=== PATIENT | female | born 2000 | race Two or more races ===

== ENCOUNTER 2024-04-18 10:47 | Outpatient (CLI) | payer MEDICAID, SELFPAY ==
--- NOTE | 2024-04-18 10:51 | XR_ITS ---
Examination: Complete OB ultrasound greater than 14 weeks Date and time of exam: April 18, 2024 1053 hours INDICATIONS: Diagnosis intrauterine growth retardation Findings: Viable intrauterine single fetus with single amniotic sac presentation cephalic spine maternal left Cardiac motion 148 BPM Placenta anterior maternal right grade 3 Umbilical cord insertion 3 vessel seen Amniotic fluid index 9.6 cm Cervix 4.0 cm Ovaries obscured by bowel gas. Composite estimated gestational age based on BPD, head circumference, abdominal circumference, femur length is 30 weeks 3 days Estimated weight 3519 g. Survey of intracranial anatomy, spinal anatomy, abdominal anatomy, four-chamber heart performed with no abnormalities identified. Impression: Viable intrauterine gestation cephalic presentation Estimated gestational age 38 weeks 3 days Estimated weight 3519 g.
[2024-04-18 11:35] VITALS: BMI 41.1
[2024-04-18 11:46] VITALS: BP 126/63; PULSE 103
[2024-04-18 11:53] VITALS: BP 126/63; PULSE 103; RESP 20; TEMP 36.9; BMI 41.1
== END 2024-04-18 13:34 | disposition home or self-care (01) ==
LOC: S4S1 10:48 → S4SX 10:48
PROVIDERS: Referring Provider Obstetrics & Gynecology; Visit Provider Obstetrics & Gynecology
DX: O36.5930 Maternal care for other known or suspected poor fetal growth, third trimester, not applicable or unspecified (principal); Z3A.30 30 weeks gestation of pregnancy
CPT/HCPCS: 59025; 76805

== ENCOUNTER 2024-05-03 19:37 | Outpatient (CLI) | payer MEDICAID, SELFPAY ==
[2024-05-03 20:00] VITALS: BMI 40.6
[2024-05-03 20:45] VITALS: BP 126/62; PULSE 94; RESP 18; RESP 93; TEMP 37
[2024-05-03 20:46] VITALS: BP 134/66; PULSE 76; PULSE 82; PULSE 85; RESP 18; TEMP 37; O2SAT 91; O2SAT 95
[2024-05-03 20:51] VITALS: PULSE 86; O2SAT 96
[2024-05-03 20:56] VITALS: PULSE 80; O2SAT 97
[2024-05-03 21:01] VITALS: PULSE 84; O2SAT 96
[2024-05-03 21:06] VITALS: PULSE 102; O2SAT 97
--- NOTE | 2024-05-03 21:46 | PC.NURSE ---
Patient discharged home with significant other. vitals and nst wnl. Patient given discharge education and precautions, including reasons to return. Patient instructed to follow up with hospital and labor specialist for NST tomorrow. Patient verbalizes understanding, all questions answered and encouraged.
== END 2024-05-03 21:43 | disposition home or self-care (01) ==
LOC: S4S1 19:38 → S4SX 21:28
PROVIDERS: Referring Provider Advanced Practice Midwife; Visit Provider Advanced Practice Midwife
DX: Z36.9 Encounter for antenatal screening, unspecified (principal); Z34.03 Encounter for supervision of normal first pregnancy, third trimester; Z3A.40 40 weeks gestation of pregnancy
CPT/HCPCS: 59025

== ENCOUNTER 2024-05-06 20:15 | Outpatient (CLI) | payer MEDICAID, SELFPAY ==
[2024-05-06 20:51] VITALS: BMI 39.5
[2024-05-06 20:52] VITALS: BP 110/59; PULSE 100
--- NOTE | 2024-05-06 20:57 | XR_ITS ---
Examination: Complete OB ultrasound greater than 14 weeks Date and time of exam: May 06, 2024 at 2117 hrs. Indications: Post dates, diagnosis intrauterine growth retardation Findings: Viable intrauterine single fetus with single amniotic sac presentation cephalic Cardiac motion 1:30 BPM Placenta fundal maternal right grade 3 Umbilical cord insertion 3 vessel seen Amniotic fluid 0.6 cm Cervix 3.6 cm Ovaries obscured by bowel gas. Composite estimated gestational age based on BPD, head circumference, abdominal circumference, femur length is 39 weeks 0 days Estimated weight 3622 g. Survey of intracranial anatomy, spinal anatomy, abdominal anatomy, four-chamber heart performed with no abnormalities identified. Impression: Viable intrauterine gestation cephalic presentation.
== END 2024-05-06 22:30 | disposition home or self-care (01) ==
LOC: S4S1 20:37 → CNST 20:43 → S4SX 22:08
PROVIDERS: Referring Provider Obstetrics & Gynecology; Visit Provider Obstetrics & Gynecology
DX: Z34.03 Encounter for supervision of normal first pregnancy, third trimester (principal); Z36.9 Encounter for antenatal screening, unspecified; Z3A.39 39 weeks gestation of pregnancy
CPT/HCPCS: 59025; 59899; 76805

== ENCOUNTER 2024-05-08 01:08 | Inpatient (IN) | payer MEDICAID, SELFPAY ==
[2024-05-08] VITALS (132 sets, daily range): BP systolic 100–156; BP diastolic 50–97; PULSE 71–228; RESP 18–98; TEMP 36.8–37.3; O2SAT 69–100
[2024-05-08] MEDS: RINGERS LACTATED 1000 ML 1,000 ML 125 ML IV ×5 (03:02→09:41)
[2024-05-08 03:32] LABS: Basophils % (Auto) 0 % (0-2.5); Eosinophils # (Auto) 0.1 Thou/mm3 (0.0-0.5); Eosinophils % (Auto) 1 % (0-10); Hematocrit 36.8 % (36.0-46.0); Immature Granulocytes % (Auto) 0 % (0-0); Immature Granulocytes Auto 0.04 Thou/mm3 (0.00-0.00); Lymphocytes # (Auto) 1.6 Thou/mm3 (1.0-4.8); Lymphocytes % (Auto) 15 % (10-50); Mean Corpuscular HGB Conc 35.3 g/dl (31.0-37.0); Mean Corpuscular Hemoglobin 29.8 pg (25.0-35.0); Mean Corpuscular Volume 84 fL (80-100); Monocytes # (Auto) 0.6 Thou/mm3 (0.0-0.8); Monocytes % (Auto) 6 % (0-12); Neutrophils # (Auto) 8.3 Thou/mm3 (1.8-7.7); Neutrophils % (Auto) 78 % (37-80); Nucleated Red Blood Cell % 0 /100 WBC (0); Platelet Count 224 Thou/mm3 (140-440); RDW Standard Deviation 44.8 fL (36.4-46.3); Red Blood Count 4.36 Miln/mm3 (4.00-5.20); White Blood Count 10.7 Thou/mm3 (3.6-11.0)
[2024-05-08] MEDS: fentaNYL CIT INJ 50 mCg/ML AMP 2ML 100 MCG IM (03:58)
[2024-05-08 04:10] LABS: Syphilis Nonreactive (Nonreactive)
[2024-05-08 05:18] LABS: Amphetamine/Metham Scrn,Ur OB Negative (Negative); Benzoylecgonine Screen, Ur OB Negative (Negative); Opiate Screen,Urine OB Negative (Negative); THC Screen,Urine OB Negative (Negative)
[2024-05-08] MEDS: fentaNYL CIT INJ 50 mCg/ML AMP 2ML 100 MCG IV (05:41)
--- NOTE | 2024-05-08 07:57 | PD.LDHP ---
Documentation for date of: 05/08/24 OB Labor/Induct. HPI History of Present Illness Chief complaint: Early labor : 1 Term pregnancies: 0 pregnancies: 0 Living children: 0 History of Abortions: Spontaneous and Elective: 0 History of sections: No History of : No DOLLY: 04/29/24 Gestational Age (weeks): 41 Gestational Age (days): 2 History of present illness: Patient is a 23-year-old G1, P0 at 41-2/7 weeks presents in early labor at 1:00 in the morning. She sees Charlee Reed is the clinic. She was scheduled for an induction last week for postdates and declined. She presented 3 cm 50% effacement -2 station. Overnight patient required fentanyl x 2. She declined an exam after admission. At 8:00 in the morning I checked the patient and she had progressed to 3 to 4 cm 70% -3. Patient is okay with oral Cytotec for augmentation. Comments: 50 mcg oral Cytotec was ordered at 8:00 in the morning. History of Present Dating criteria: LMP confirmed by 1st trimester US Adequate Care: Yes Ultrasounds: normal mid trimester US Obstetrical complications: none Medical complications: none Labs Maternal Blood Type: A Neg Labs: Negative: Hepatitis B, HIV, Chlamydia and Group Beta Strep Review of Systems Constitutional Constitutional: Reports system reviewed and no additional complaints, except as documented Comments: Patient reports some vaginal bleeding on admission she denies leakage of fluid she reports moderate contractions and good movement. Past Medical History Surgical History SURGICAL: Negative Section Meds Home Medications and Allergies Home Medications ?Medication ?Instructions ?Recorded ?Confirmed ?Type albuterol 90 mcg/actuation aerosol 90 mcg inhalation PRN PRN Adequate 04/18/24 05/08/24 History inhaler Ventilation [id number] 1 mg 1 tab PO QDAY 04/18/24 05/08/24 History tablet Allergies Allergy/AdvReac Type Severity Reaction Status Date / Time No Known Allergies Allergy Verified 05/08/24 02:15 OB Exam Physical Exam Vital signs: Temp Pulse Resp BP Pulse Ox 98.2 F 85 18 107/57 L 89 L 05/08/24 07:00 05/08/24 07:22 05/08/24 07:00 05/08/24 07:22 05/08/24 04:01 Routine Abdominal Exam Abdominal: Present soft Detailed Labor and Delivery Exam Dilation (cm): 3-4 Effacement (%): 60 Cervix position: posterior station: -2 Consistency: medium Presentation: Vertex Membranes: intact monitor accelerations: 15x15 monitor decelerations: None termite exterminator variability: Average (6-10) Contraction frequency (min): Unable to monitor contractions Tachysystole: No OB Results Labs 05/08/24 02:22 Labs: Short CBC 05/08/24 Range/Units 02:22 WBC 10.7 (3.6-11.0) Thou/mm3 Hgb 13.0 (12.0-16.0) g/dL Hct 36.8 (36.0-46.0) % Plt Count 224 (140-440) Thou/mm3 OB Assessment & Plan Additional Plan Induction method: per misoprostol protocol Plan: augmentation Additional Plan Comment: Cytotec ordered at 8:00 in the morning as patient has not progressed overnight and greater than 6 hours. The RN is holding medication at this time based on the tracing.
[2024-05-08] MEDS: MISOPROSTOL 50 mCg TABLET PO (08:25)
[2024-05-08] MEDS: FAMOTIDINE 20 MG TABLET PO ×2 (09:04→21:53)
[2024-05-08] MEDS: PRENATAL VITAMIN/FE FUM/FA TABLET 1 TAB PO (09:04)
[2024-05-08] MEDS: FAMOTIDINE INJ 10 MG/ML VIAL 2 ML 20 MG IV (13:33)
[2024-05-08] MEDS: CITRIC ACID/SODIUM CITR 15 ML UDC (BICITRA) 30 ML PO (13:33)
[2024-05-08] MEDS: ceFAZolin/D5W 2 GM IV 2 GM/100 ML BAG IV (13:33)
--- NOTE | 2024-05-08 17:48 | ESOP_ITS ---
Operative Note - SUPERVISOR MAINTENANCE Procedure Date of procedure: 05/08/24 Procedure Performed: Primary low-transverse section Indication: Category 3 tracing Pre-Op diagnosis: 1. Intrauterine at 41-2/7 weeks 2. Persistent category 3 tracing. Post-Op diagnosis: Same Anesthesia type: other (Bolused epidural) Procedure description: The patient is a 23-year-old who presented in early labor around 1:00 in the morning on 05/08/2024. The Patient was 41-2/7 weeks . She was admitted. She was 3 cm on presentation and by about 7:30 in the morning had only progressed to 3 to 4 cm. Oral Cytotec was ordered and placed around 8:30 in the morning. Patient began to have contractions. At about 1300 I examined the patient and she progressed to 4 to 5 cm dilatation and amniotomy was performed intrauterine pressure catheter was placed and thick meconium was noted. During the afternoon the baby had periods of a nonreactive tracing with some subtle decelerations these did not improve with position change and placement of oxygen. As the patient was remote from delivery with a category 2- 3 tracing and was still 4 to 5 cm dilated, the decision was made to proceed with primary low-transverse section. The patient was brought back to the operating room after obtaining informed consent, and her epidural was bolused to obtain excellent anesthesia. She was then prepped and draped in the dorsal supine position with a leftward tilt in a normal sterile fashion. A Thornton catheter had been inserted during the patient's labor. A Pfannenstiel skin incision was made with a scalpel and carried down to the underlying fascia. The fascia was incised in the midline and the fascial incision extended laterally using Doran scissors. The superior aspect of the fascia was grasped with Nettie clamps and the underlying rectus muscles dissected off using blunt and sharp dissection. This was repeated in the inferior aspect the incision. The rectus muscles were in the midline abd the peritoneum was picked up entered bluntly with the surgeon's fingers. This was extended superiorly and inferiorly with good visualization of the bladder. The bladder blade was inserted and the uterus was incised with a scalpel above the bladder reflection in a low transverse fashion. The uterine incision was extended laterally using blunt dissection with the surgeons fingers. The bag saez was ruptured and thick meconium was noted. The bladder blade was removed the infant was driven atraumatically.The cord was clamped and cut and the infant was handed off to the waiting pediatric staff. Cord blood and cord gases were sent. The placenta was then manually removed and handed off the operating field. The uterus was exteriorized and cleared of all clots and debris. The uterine incision was repaired using 0 Monocryl in a running locked fashion and excellent hemostasis was noted. The uterus was returned to the patient's abdominal cavity and copious irrigation carried out with warm normal saline. The uterine incision was reexamined several times and noted be hemostatic .After ensuring the rectus muscles were hemostatic these were reapproximated in the midline using a running suture of 1-0 Monocryl. The fascia was closed with 0 Vicryl in a running fashion. The subcutaneous tissues were irrigated found and hemostatic. These were reapproximated using a running suture of 3-0 plain. The skin was closed with a subcuticular suture of 4-0 Monocryl. The patient tolerated the procedure well, sponge, lap and needle counts were correct x 2, the patient went to the recovery area awake and in stable condition. Fluids: crystalloid Fluid amount (mL): 1,100 Urine output (mL): 150 Specimen: other (Umbilical cord arterial and venous blood gases were sent) and none Implants: none Estimated blood loss (ml): 500 Findings: Liveborn male in the OA presentation with no nuchal cord and with thick meconium. Apgars were 9 and 9 and the weight was 7 pounds 5 ounces. The placenta was complete spontaneous meconium stained and calcified otherwise grossly normal. Patient's uterus tubes and ovaries appeared grossly normal. Complications: none Surgical staff Operation Date: 05/08/24 13:45 Case Staff HUMAN RESOURCES HR GENERALIST: Brendon Pardo RNpoultry picker: Bridget Merrill Diagnosis Problem List Completed Was Problem List Reviewed/Reconciled?: Yes
[2024-05-08] MEDS: HYDROcodone/APAP 5/325 TABLET 2 TAB PO (19:59)
[2024-05-08] MEDS: IBUPROFEN TAB 400 MG TABLET 800 MG PO (22:11)
[2024-05-08] MEDS: OXYTOCIN in NS 20 units 20 UNIT/1,000 ML BAG 125 UNIT IV (23:49)
[2024-05-09] VITALS: BP 108/67; PULSE 92; RESP 19; TEMP 36.9
--- NOTE | 2024-05-09 01:00 | PC.NURSE ---
05/09/2024 0030 called to patient's room to see patient. patient is sweating and pale. patient states in pain. vs 121/73, 97% RA, temp 98.2. FF with mild massage. scant blood at this time. Pain medication given [place] 10/650 at 1999 and Ibuprofen 800mg at 2210. 0046 MD Maria notified. SBAR given. CBC now. Give Toradol, schedule ibuprofen after Toradol. Give pain medications on a schedule. Colace and Simethicone ordered. Will pass on to primary RN the orders given.
--- NOTE | 2024-05-09 01:37 | PD.LDPPPRG ---
Subjective Subjective Interval history: Called by RN to evaluate patient for a diaphoretic episode. Patient is also reporting increased pain. She will underwent a approximately 12 hours ago at about 2:00 in the afternoon on 05/08/2024. Patient denies any bleeding fundus is firm no nausea and vomiting. Pulse is currently in the 80s and blood pressures in the 110s over 80s. Exam Vital Signs Temp Pulse Resp BP Pulse Ox 98.4 F 92 19 108/67 98 05/09/24 00:00 05/09/24 00:00 05/09/24 00:00 05/09/24 00:00 05/08/24 20:42 Narrative Exam The patient is alert and oriented and in no apparent distress. She states that she thinks she got hot because she had too many blankets on. Constitutional Constitutional: no acute distress and cooperative Routine Abdominal Exam Abdominal: Present soft and normoactive bowel sounds Comments: Fundus is firm slightly tender OB PAD not soaked. Dressing clean dry and intact. Routine Extremities Exam Extremities: Present full ROM Routine Skin Exam Skin: Present intact, dry and warm Routine Psychiatric Exam Psychiatric: Present normal affect and normal thought process Objective Labs 05/08/24 02:22 Labs: Laboratory Results - last 24 hr 05/08/24 05/08/24 05/08/24 02:22 02:25 05:00 WBC 10.7 RBC 4.36 Hgb 13.0 Hct 36.8 MCV 84 MCH 29.8 MCHC 35.3 RDW Std Deviation 44.8 Plt Count 224 Neut % (Auto) 78 Lymph % (Auto) 15 [place] % (Auto) 6 Eos % (Auto) 1 Baso % (Auto) 0 Neut # (Auto) 8.3 H Lymph # (Auto) 1.6 [place] # (Auto) 0.6 Eos # (Auto) 0.1 Baso # (Auto) 0.0 Immature Gran # (Auto) 0.04 H Absolute Nucleated RBC 0.00 Immature Gran % 0 Nucleated RBC % 0 Urine Opiates Screen Negative U Amphetamin/Meth Scrn Negative U Cocaine Metab Screen Negative U Marijuana (THC) Screen Negative Syphilis Serology Nonreactive Blood Type A Negative Antibody Screen NEGATIVE Blood Bank Wristband ID Yes Assessment & Plan Assessment Comment Assessment comment: Postop day 0 status post primary low-transverse section approximately 12 hours ago with a diaphoretic episode. Patient's vital signs are stable at this time. Patient states she feels better. IV Toradol was ordered for pain and a stat CBC. Plan Comment Plan Comment: Stat CBC and IV Toradol. Encouraged large amounts of p.o. fluids. Consider keeping Thornton in place 18 hours instead of 12 hours. Time Spent With Patient Time: Total time spent is greater than 50% in coordination of care (as documented) at patient's floor/unit and/or counseling patient: Time with patient: less than 15 minutes
[2024-05-09 01:52] LABS: Basophils % (Auto) 0 % (0-2.5); Eosinophils # (Auto) 0.1 Thou/mm3 (0.0-0.5); Eosinophils % (Auto) 1 % (0-10); Hematocrit 29.4 % (36.0-46.0); Hemoglobin 10.4 g/dL (12.0-16.0); Immature Granulocytes % (Auto) 0 % (0-0); Immature Granulocytes Auto 0.04 Thou/mm3 (0.00-0.00); Lymphocytes # (Auto) 1.6 Thou/mm3 (1.0-4.8); Lymphocytes % (Auto) 15 % (10-50); Mean Corpuscular HGB Conc 35.4 g/dl (31.0-37.0); Mean Corpuscular Hemoglobin 30.2 pg (25.0-35.0); Mean Corpuscular Volume 86 fL (80-100); Monocytes # (Auto) 0.7 Thou/mm3 (0.0-0.8); Monocytes % (Auto) 6 % (0-12); Neutrophils % (Auto) 77 % (37-80); Nucleated Red Blood Cell % 0 /100 WBC (0); Platelet Count 144 Thou/mm3 (140-440); RDW Standard Deviation 45.4 fL (36.4-46.3); Red Blood Count 3.44 Miln/mm3 (4.00-5.20); White Blood Count 10.3 Thou/mm3 (3.6-11.0)
[2024-05-09] MEDS: HYDROcodone/APAP 5/325 TABLET 1 TAB PO ×2 (02:18→09:31)
[2024-05-09 04:10] VITALS: BP 108/68; PULSE 90; RESP 18; TEMP 36.6
[2024-05-09] MEDS: KETOROLAC INJ 30 MG/ML VIAL IVP ×2 (05:57→12:49)
--- NOTE | 2024-05-09 07:39 | ESPR_ITS ---
Subjective Subjective Interval history: Pt feels good today. No more diaphoretic episodes. Tolerating a general diet.Pain controlled with PO pain meds. Having difficulty . Exam Vital Signs Temp Pulse Resp BP Pulse Ox 98 F 90 18 108/68 98 05/09/24 04:10 05/09/24 04:10 05/09/24 04:10 05/09/24 04:10 05/08/24 20:42 Constitutional Constitutional: no acute distress Routine Cardiovascular Exam Cardiovascular: Present RRR Routine Abdominal Exam Abdominal: Present soft and normoactive bowel sounds Routine Extremities Exam Extremities: Present full ROM Routine Skin Exam Skin: Present intact, dry and warm Routine Psychiatric Exam Psychiatric: Present normal affect and normal thought process Objective Labs 05/09/24 01:32 Labs: Laboratory Results - last 24 hr 05/08/24 05/09/24 02: 01:32 WBC 10.3 RBC 3.44 L Hgb 10.4 L D Hct 29.4 L MCV 86 MCH 30.2 MCHC 35.4 RDW Std Deviation 45.4 Plt Count 144 D Neut % (Auto) 77 Lymph % (Auto) 15 [place] % (Auto) 6 Eos % (Auto) 1 Baso % (Auto) 0 Neut # (Auto) 8.0 H Lymph # (Auto) 1.6 [place] # (Auto) 0.7 Eos # (Auto) 0.1 Baso # (Auto) 0.0 Immature Gran # (Auto) 0.04 H Absolute Nucleated RBC 0.00 Immature Gran % 0 Nucleated RBC % 0 Blood Type A Negative Antibody Screen NEGATIVE Blood Bank Wristband ID Yes Assessment & Plan Assessment Comment Assessment comment: POD #1 s/p Primary CS, Doing well Plan Comment Plan Comment: Routine post op care. risk control consultant Time Spent With Patient Time: Total time spent is greater than 50% in coordination of care (as documented) at patient's floor/unit and/or counseling patient: Time with patient: less than 15 minutes
[2024-05-09 08:10] VITALS: BP 107/69; RESP 17; TEMP 36.8; O2SAT 98
[2024-05-09] MEDS: DOCUSATE SOD 100 MG CAPSULE PO ×2 (09:30→21:07)
[2024-05-09] MEDS: FAMOTIDINE 20 MG TABLET PO ×2 (09:30→21:07)
--- NOTE | 2024-05-09 10:12 | PC.SS ---
SS conducted bedside contact with the patient to address nursing referral indicating that patient was positive for THC during care.? Current tox for mom and baby were negative.? SS introduced self and role.? SS asked permission to discuss referral in the presence of FOB.? Patient agreed. SS discussed basis for referral. Patient confirmed she used THC in beginning of . Patient states she stopped once she found out she was . ?Patient received care at [facility]. OB services provided by Charlee Reed. ?This is patient?s first baby. Patient delivered baby girl through . Patient has not picked out a algology teacher yet. FOB, Kyle Coburn, is involved.? Patient states she resides with the FOB and mother in law.? Patient confirmed no history of drugs/alcohol, DV or mental health history.? Patient is aligned with WIC. Patient is not aligned with SNAP or TANF. Patient has access to appropriate supplies and equipment.? Patient has access to a car seat.? Patient describes possessing support system consisting of spouse and family. FOB to provide transportation home. No further intervention required at this time. Regional Sales Coordinator will be available to address any further concerns. SS updated bedside nurse.
[2024-05-09 12:50] VITALS: BP 111/70; RESP 15; TEMP 36.9; O2SAT 97
[2024-05-09 16:35] VITALS: BP 116/77; PULSE 98; RESP 16; TEMP 36.6; O2SAT 98
[2024-05-09] MEDS: IBUPROFEN TAB 400 MG TABLET 800 MG PO (17:45)
[2024-05-09 21:05] VITALS: BP 115/75; PULSE 102; RESP 16; TEMP 36.5; O2SAT 96
[2024-05-10] MEDS: HYDROcodone/APAP 5/325 TABLET 1 TAB PO ×3 (00:23→12:39)
[2024-05-10 03:57] VITALS: BP 107/70; PULSE 84; RESP 16; TEMP 36.7; O2SAT 98
[2024-05-10] MEDS: IBUPROFEN TAB 400 MG TABLET 800 MG PO ×2 (04:05→13:49)
[2024-05-10 08:20] VITALS: BP 117/73; PULSE 88; RESP 16; TEMP 36.5; O2SAT 97
--- NOTE | 2024-05-10 08:26 | PD.LDDS ---
DS: Providers Provider Date of admission: 05/08/24 02:07 Primary care physician: Physician No Primary/Family Admitting Provider: Katlyn Car MD Attending Provider on Admission: Andrzej Campbell MD Consults: 05/08/24 14:46 Referral Routine Comment: Attending Provider on DC: Katlyn Car MD Discharging Provider: Katlyn Car MD Anticipated date of discharge: 05/10/24 DS: Diagnosis Discharge Diagnosis (1) delivery, delivered, current hospitalization: Status: Acute (2) Category III heart rate tracing during labor and delivery: Status: Acute (3) Post-dates , delivered, current hospitalization: Status: Acute Problem List Completed Was Problem List Reviewed/Reconciled?: Yes Summary/Hosp Course Brief History: Patient is a 23-year-old G1, P0 at 41-2/7 weeks presents in early labor at 1:00 in the morning. She sees Charlee Reed is the clinic. She was scheduled for an induction last week for postdates and declined. She presented 3 cm 50% effacement -2 station. Overnight patient required fentanyl x 2. She declined an exam after admission. At 8:00 in the morning I checked the patient and she had progressed to 3 to 4 cm 70% -3. Patient is okay with oral Cytotec for augmentation. Peripartum Data Delivery Method: Low Transverse Procedures: Procedures Operation Date: 05/08/24 13:45 Actual Procedure Side Surgeon p in OB Not Applicable Marina Car MD complications: none Status at Discharge Cognitive/behavioral status at discharge: Patient is doing well post operative day. She has no pain no heavy vaginal bleeding no fevers or chills Functional status at discharge: independent ambulation Overall status at discharge: patient is progressing back to baseline Time Spent with Patient Time attestation: Total time spent providing and/or coordinating discharge services: Time spent: Less than 30 minutes Specific discharge activities: Call for heavy vaginal bleeding, fevers 100.4 ?F or higher. Erythema around her incision. Severe depression. Follow-up in clinic and 1 in 6 weeks. Exam Vital Signs Temp Pulse Resp BP Pulse Ox O2 Del Method 98.1 F 84 16 107/70 98 Room Air 05/10/24 03:57 05/10/24 03:57 05/10/24 03:57 05/10/24 03:57 05/10/24 03:57 05/10/24 03:57 Constitutional Constitutional: no acute distress and cooperative Comments: Patient is alert oriented X 3 in no apparent distress. Sitting up in bed holding her . Father said bedside. Routine Abdominal Exam Abdominal: Present soft and normoactive bowel sounds Comments: Incision clean dry and intact. Fundus firm. Routine Extremities Exam Extremities: Present full ROM Routine Skin Exam Skin: Present intact, dry and warm Routine Psychiatric Exam Psychiatric: Present normal affect and normal thought process Discharge Plan Plan Patient Disposition: HOME (Self Care) Disposition Comment: Stable Prescriptions/Referrals Prescriptions/Med Rec: New hydrocodone-acetaminophen 5-325 mg tablet 1 tab PO Q6H MDD 4 PRN (Reason: pain) Qty: 20 0RF acetaminophen [Tylenol Extra Strength] 500 mg tablet 1,000 mg PO Q6H MDD 3000 mg PRN (Reason: pain) Qty: 60 0RF ibuprofen 600 mg tablet 600 mg PO Q6H PRN (Reason: pain) Qty: 90 0RF No Action 1 mg Tablet 1 tab PO QDAY albuterol 90 mcg/actuation Aerosol 90 mcg INHALATION PRN PRN (Reason: Adequate Ventilation) Referrals: No Primary/Family,Physician [Primary Care Provider] - Patient/Caregiver Discharge Instructions Discharge Activity: resume usual activities Other Discharge Activity Instructions:: [place] tampons of douching for 6 weeks call with heavy vaginal bleeding fevers incision concerns or depression Other Discharge Diet Instructions: General diet Education Materials: After Delivery [place] Concerns, After a , : Caring for Yourself, C Section Dc Print Language: Slovenian Activity Restrictions/Additional Instructions: No epileptic intercourse tampons or douching for 6 weeks call with heavy vaginal bleeding fevers incision pain severe depression Stand Alone Forms: Rajni Award Info., Patient Portal Info Letter Discharge Order Discharge Orders: Discharge (Routine); Ordered 05/10/24 Ordered By: Katlyn Car Planned Discharge Date 05/10/24
[2024-05-10] MEDS: FAMOTIDINE 20 MG TABLET PO (09:09)
[2024-05-10] MEDS: DOCUSATE SOD 100 MG CAPSULE PO (09:09)
== END 2024-05-10 15:54 | disposition home or self-care (01) | DRG 540 ==
LOC: S4SX 14:25 → S4NX 21:20
PROVIDERS: Admitting Provider Obstetrics & Gynecology; Visit Provider Student in an Organized Health Care Education/Training Program
PROC: (CPT 59514; principal; 2024-05-08 13:30)
DX: O48.0 Post-term pregnancy (principal); Z37.0 Single live birth; Z3A.41 41 weeks gestation of pregnancy; O77.0 Labor and delivery complicated by meconium in amniotic fluid
CPT/HCPCS: 36415; 59409; 80307; 85025; 86780; 86850; 86900; 86901; 94762; J0689; J1885; J2250; J2590; J2795; J3010; J3490; J7120; A9270